=== PATIENT | female | born 1955 | race Caucasian/White ===

== ENCOUNTER 2017-10-19 09:41 | Outpatient (CLI) | payer MEDICARE, MEDICAID | END 2017-10-19 09:42 | disposition home or self-care (01) | LOC: BICRAD 09:41 | PROVIDERS: ATTEND Internal Medicine | DX: R73.9 Hyperglycemia, unspecified (principal); R91.8 Other nonspecific abnormal finding of lung field | CPT/HCPCS: 71020 ==